=== PATIENT | male | born 1980 | race Hispanic/Latino ===

== ENCOUNTER 2018-11-18 01:55 | Emergency (ER) | payer SELFPAY ==
[~2018-11-18] VITALS: Ht 172.7 cm; Wt 99.8 kg
[2018-11-18] MEDS ORDERED: SODIUM CHLORIDE 0.9% 1000 ML BAG IV STA (03:04)
[2018-11-18] MEDS ORDERED: SODIUM CHLORIDE 0.9% 50ML 50 ML ONE (03:06)
[2018-11-18] MEDS ORDERED: IOPAMIDOL 370 MG/ML 200 ML INFUS..BTL INJ ONE (03:06)
--- NOTE | 2018-11-18 03:49 | Diagnostic Imaging Report ---
EXAMINATION: CT of the abdomen and pelvis with contrast. TECHNIQUE: Spiral CT images of the abdomen and pelvis were performed from the lung bases to the lesser trochanters after the intravenous administration of 100 cc Isovue-370. Coronal and sagittal reformatted images were obtained. COMPARISON: None. CLINICAL HISTORY:Left-sided abdominal pain DISCUSSION: ABDOMEN/PELVIS: LOWER THORAX:Trace subsegmental atelectasis in the dependent lower lobes. HEPATOBILIARY: Hepatic parenchyma is diffusely hypoattenuating compatible with steatosis. Focal sparing along the gallbladder fossa. No additional focal hepatic lesion or intrahepatic biliary ductal dilatation. The gallbladder is normal. SPLEEN: No splenomegaly. PANCREAS: No focal masses or ductal dilatation. ADRENALS: The medial limb of the left adrenal gland is replaced by a multiseptated, cystic lesion measuring approximately 6 cm craniocaudal x 3.7 cm AP x 5.5 cm transverse as seen on series 2 image 32. There are several thin internal septations, some of which are partially calcified for example on series 2 image 33. No right adrenal nodule. KIDNEYS/URETERS: Subcentimeter hypoattenuating lesion in the left kidney, too small to further characterize but likely represents a small cyst. No hydronephrosis, calculi, or solid or cystic mass lesions. PELVIC ORGANS/BLADDER: Urinary bladder, prostate, and seminal vesicles are unremarkable. PERITONEUM/RETROPERITONEUM: No ascites. No pneumoperitoneum. LYMPH NODES: No pelvic sidewall, retroperitoneal, or mesenteric lymphadenopathy. VESSELS: The abdominal aorta, major branch vessels, and iliac arterial systems are well-visualized and patent. The portal vein, splenic vein, and central superior mesenteric vein are patent. GI TRACT: The large bowel shows no evidence of distention or wall thickening. There are a few diverticula scattered along the descending and sigmoid colon without wall thickening or inflammatory change. The appendix is normal. No small bowel dilatation to suggest obstruction. Probable radiopaque tablets are identified within the small bowel and cecum, likely related to antacid ingestion or other metallic salt containing medication. BONES AND SOFT TISSUE: No osseous destructive lesion. No focal soft tissue abnormality. IMPRESSION: No acute intra-abdominal or pelvic CT abnormality. 6 cm complex cystic lesion in the medial limb of the left adrenal gland should be further characterized by nonemergent MRI of the abdomen with and without contrast (adrenal protocol). Large bowel diverticulosis without evidence of diverticulitis. Hepatic steatosis. Signed by: Dr. Loi Garcia M.D. on 11/18/2018 3:46 AM
== END 2018-11-18 04:24 | disposition home or self-care (01) ==
LOC: FSED 01:55
DX: R10.33 Periumbilical pain (principal); E27.9 Disorder of adrenal gland, unspecified; R73.9 Hyperglycemia, unspecified; E87.6 Hypokalemia
CPT/HCPCS: 74177; 99284; J7030; Q9967